=== PATIENT | female | born 1975 | race Hispanic/Latino ===

== ENCOUNTER 2020-03-31 06:38 | Inpatient (IN) | payer OTHER, SELFPAY ==
[2020-03-31] MEDS ORDERED: Ketorolac Tromethamine 30 MG/ML VIAL ONE (07:09)
[2020-03-31] MEDS ORDERED: Ondansetron PF 4 MG/2 ML Vial ONE (07:09)
[2020-03-31 07:21] LABS: #Lymphocytes 1.4 thou/uL (1.20-3.40); #Monocytes 1.1 thou/uL (0.11-0.59); #Neutrophils 10.6 thou/uL (1.40-6.50); %Basophils 0.1 % (0.0-1.0); %Eosinophils 0.4 % (0.0-10.0); %Lymphocytes 10.7 % (21.0-51.0); %Neutrophils 80.8 % (42.0-75.0); Hemoglobin 13.3 g/dL (12.0-16.0); Mean Corpuscular HGB CONC 31.8 g/dL (32.0-36.0); Mean Corpuscular Hemoglobin 27.2 pg (27.0-31.0); Mean Corpuscular Volume 85.4 fL (78.0-98.0); Mean Platelet Volume 7.1 fL (7.4-10.4); Platelet Count 333 thou/uL (130-400); RBC Distribution Width 12.4 % (11.5-14.5); White Blood Cell (WBC) Count 13.1 thou/uL (4.8-10.8)
[2020-03-31 07:26] LABS: BHCG - Serum Negative (NEGATIVE); Pregs Control Background? CLEAR/WHITE (CLR/WHITE); Pregs Control Bar Appear? YES (CONTROL BAR)
[2020-03-31 07:28] LABS: Bilirubin Negative (Negative); Blood, Urine 2+ (Negative); Clarity Turbid (Clear); Glucose, Urine (Dipstick) Normal (Negative); Ketone, Urine 150 mg/dL (Negative); Leukocyte 250 Leu/uL (Negative); Nitrite Negative (Negative); Protein, Urine (Dipstick) Negative (Neg-Trace); Specific Gravity, Urine 1.014 (1.002-1.036); Urobilinogen Normal mg/dL (Less than 2)
[2020-03-31 07:36] LABS: Bacteria/HPF 1+ HPF (None Seen)
[2020-03-31 07:43] LABS: ALT (SGPT) 27 U/L (8-55); AST (SGOT) 19 U/L (5-34); Albumin 4.2 g/dL (3.5-5.0); Alkaline Phosphatase 61 U/L (40-110); Anion Gap 12 mmol/L (10-20); BUN (Urea Nitrogen) 6 mg/dL (7.0-18.7); Bilirubin, Total 0.5 mg/dL (0.2-1.2); Calc. Creatinine Clearance 0 mL/min (70-130); Calcium 9.4 mg/dL (7.8-10.44); Carbon Dioxide 25 mmol/L (22-29); Chloride 102 mmol/L (98-107); Estimated GFR-MDRD Greater than 90; Globulin 3.7 g/dL (2.4-3.5); Glucose 110 mg/dL (70-105); Lipase Less than 4 U/L (8-78); Potassium 3.8 mmol/L (3.5-5.1); Protein, Total 7.9 g/dL (6.0-8.3); Sodium 135 mmol/L (136-145)
--- NOTE | 2020-03-31 07:48 | ULT ---
Exam: Right upper quadrant ultrasound: HISTORY: Right upper quadrant abdominal pain for one week which is now worse COMPARISON: None FINDINGS: Liver: Increased in echogenicity suggesting diffuse fatty infiltration. Hypoechoic area seen adjacent to the gallbladder likely attributable to fatty sparing. Gallbladder: There is a echogenic focus seen in the neck of the gallbladder with posterior shadowing most compatible with a gallbladder calculus which measures approximately 2.4 cm. Additional very small amount of echogenic material is seen in the gallbladder lumen probably related to gallbladder s ludge. No gallbladder wall thickening or pericholecystic fluid is identified. Common bile duct: The common duct is normal in caliber measuring 0.4 cm in diameter. Pancreas: Mostly obscured and not well evaluated on this exam. Right kidney: Right kidney demonstrates a normal sonographic appearance. The right kidney measures 1 0.3 cm in length. IVC: The visualized IVC demonstrates a normal sonographic appearance. IMPRESSION: 1. Cholelithiasis with large gallbladder calculus seen in the neck of the gallbladder measuring 2.4 c m. Gallbladder is mildly distended. There is no gallbladder wall thickening or pericholecystic fluid identified. Suggestion of very small amount of gallbladder sludge. 2. Fatty infiltration of the liver.
[2020-03-31] MEDS ORDERED: Morphine 2 MG/ML VIAL SLOW IVP PRN (09:26)
[2020-03-31] MEDS ORDERED: hydrALAZINE 20 MG/ML VIAL SLOW IVP PRN (09:26)
[2020-03-31] MEDS ORDERED: Morphine 4 MG/ML VIAL SLOW IVP PRN (09:26)
[2020-03-31] MEDS ORDERED: Ondansetron PF 4 MG/2 ML Vial IVP PRN (09:26)
[2020-03-31] MEDS ORDERED: Ondansetron ODT 4 MG TAB PO PRN (09:26)
--- NOTE | 2020-03-31 10:46 | HP ---
HISTORY OF PRESENT ILLNESS: Judy Heredia is a 44-year-old female, [place]z-speaking only, reports with more than one month history of episodic epigastric right upper quadrant pain, back radiation, becoming more severe, presented to the emergency room. Ultrasound reveals large gallstones, normal bile duct caliber. Liver function tests are normal. White count 13, hemoglobin 13. Renal function normal. The patient has not had any COVID symptoms. She is COVID negative clinically. COVID swab obtained, pending. The patient has a positive Salas sign on exam. She has acute cholecystitis, cholelithiasis, and needs laparoscopic cholecystectomy that cannot be managed as an outpatient as a result of anesthesia requirements, that she be COVID negative, she will have to be hospitalized until that test becomes available later today or tomorrow to perform a laparoscopic cholecystectomy, pending that determination. ALLERGIES: NONE. SOCIAL HISTORY: Tobacco, none. Alcohol, rarely. MEDICATIONS: None routinely. PAST SURGICAL HISTORY: C-sections. PAST MEDICAL HISTORY: Noncontributory. Clinically COVID negative. PHYSICAL EXAMINATION: VITAL SIGNS: Blood pressure 120/74, heart rate 74, respiratory rate 16. HEAD, EARS, EYES, NOSE, AND THROAT: Unremarkable. Sclerae are nonicteric. SKIN: Nonjaundiced. LUNGS: Clear to auscultation. CARDIAC: Regular rate and rhythm without murmur or gallop. ABDOMEN: Soft. Tenderness in the right upper quadrant, guarding, rebound, positive Salas sign. EXTREMITIES: Unremarkable. scar per above history. LABORATORY DATA: As above. ASSESSMENT AND PLAN: Acute on chronic cholecystitis, cholelithiasis. Recommend laparoscopic video cholecystectomy. Risks and benefits explained. Questions answered. Job ID: [id number]
[2020-03-31] MEDS: Sodium Chloride 0.9% 1,000 ML IV SCH ×2 (11:49→18:03)
[2020-03-31 11:57] VITALS: BMI 27.6
[2020-03-31] MEDS: Ketorolac Tromethamine 30 MG/ML VIAL IVP SCH ×3 (13:16→23:57)
[2020-03-31] MEDS ORDERED: Enoxaparin Sodium 40 MG/0.4 ML SYRINGE SC SCH (21:00)
[2020-04-01] MEDS: Sodium Chloride 0.9% 1,000 ML IV SCH ×2 (04:57→05:14)
[2020-04-01] MEDS: Ketorolac Tromethamine 30 MG/ML VIAL IVP SCH ×3 (05:13→16:42)
[2020-04-01] MEDS ORDERED: Ondansetron PF 4 MG/2 ML Vial ONE (10:23)
[2020-04-01] MEDS ORDERED: Rocuronium Bromide 10 MG/ML (10ML VIAL) ONE (10:23)
[2020-04-01] MEDS ORDERED: PROPOFOL 200 MG/20 ML VIAL ONE (10:23)
[2020-04-01] MEDS ORDERED: Lidocaine 1% PF 5 ML VIAL ONE (10:23)
[2020-04-01] MEDS ORDERED: Dexamethasone 20 MG/5 ML VIAL ONE (10:23)
[2020-04-01] MEDS ORDERED: Glycopyrrolate 0.2 MG/ML 5 ML SYRINGE ONE (10:23)
[2020-04-01 12:11] LABS: SARS-CoV-2 MS2 Positive; SARS-CoV-2 N Gene Negative; SARS-CoV-2 S Gene Negative; SARS-CoV-2 by NAA Not Detected (NotDetected); SARS-CoV-2 orf1ab Negative
[2020-04-01] MEDS ORDERED: Bupivacaine PF 0.5% 30 ML VIAL ONE (13:25)
[2020-04-01] MEDS ORDERED: Lidocaine 1% w/Epinephrine 1:100K 20 ML VIAL ONE (13:25)
[2020-04-01] MEDS ORDERED: Ibuprofen 600 MG TAB PO PRN (13:56)
[2020-04-01] MEDS ORDERED: Acetaminophen 500 MG TAB PO PRN (13:56)
[2020-04-01] MEDS ORDERED: traMADol HCl 50 MG TAB PO PRN ×2 (13:56)
[2020-04-01] MEDS ORDERED: Midazolam HCl 2 mg/2 ml Vial ONE (14:05)
[2020-04-01] MEDS ORDERED: Fentanyl 100 MCG/2 ML VIAL ONE ×2 (14:05→14:37)
[2020-04-01 18:45] VITALS: BP 113/75; TEMP 98.4
--- NOTE | 2020-04-01 22:40 | OP ---
DATE OF PROCEDURE: 04/01/2020 PREOPERATIVE DIAGNOSES: Acute and chronic cholecystitis, cholelithiasis, and gallbladder outlet obstruction with large gallstone. PROCEDURE PERFORMED: Laparoscopic video cholecystectomy. ANESTHESIA: General, local 0.5% Marcaine with epinephrine 30 mL mixed with 1% Xylocaine with epinephrine 20 mL. DESCRIPTION OF PROCEDURE: The patient was taken to the operating room, where under general anesthesia, abdomen was prepared with ChloraPrep and draped in routine fashion. Local anesthetic mixture was infiltrated into the skin and subcutaneous tissue about each port site. Infraumbilical incision was made. Pneumoperitoneum to 15 mmHg was obtained with a Veress needle, replaced with a 5 port, video laparoscope inserted. Right subxiphoid incision was made and 11 port placed. Right subcostal incision was made at midclavicular entrance. A 5 port was placed. The gallbladder was acutely inflamed, thickened wall, large stone blocking in the gallbladder outlet. There was an acute inflammatory reaction. Fundus was grasped, reflected cephalad. Infundibulum grasped and reflected laterally. Cystic artery and duct dissected free. Critical view obtained. Cystic artery and duct doubly clipped proximally and divided. Gallbladder dissected free from liver bed, obtaining good hemostasis, prior to division of final peritoneal attachments good hemostasis obtained utilizing Benjamín. Gallbladder and numerous large stones were removed. Good hemostasis assured. Benjamín applied as stated. Pneumoperitoneum and irrigant evacuated. All instruments were removed. All skin incisions were approximated with interrupted subdermal 4-0 Monocryl after right subxiphoid fascia approximated with 0 Vicryl on UR needle. The patient tolerated the procedure well. Job ID: [id number]
--- NOTE | 2020-04-02 04:21 | DIS ---
DATE OF ADMISSION: 03/31/2020 DATE OF DISCHARGE: 04/01/2020 DISCHARGE DIAGNOSES: Acute cholecystitis, cholelithiasis. 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 She was hospitalized overnight, IV fluids, n.p.o., and given antibiotics. Taken to the operating room for findings that were that of acute cholecystitis with markedly thickened wall, difficult dissection. Postoperatively, the patient was discharged home with Tylenol, Motrin [id number] for pain, Ultram #21 refill, Zofran #10 one refill. Follow up in my office in 2 to 3 weeks. Diet and activity as tolerated. Job ID: [id number]
== END 2020-04-01 19:05 | disposition home or self-care (01) | DRG 419 ==
LOC: ERS 06:38 → T4-A 11:16
PROVIDERS: ADMIT Specialist; ATTEND Specialist
PROC: 0FT44ZZ Resection of Gallbladder, Percutaneous Endoscopic Approach (ICD-10-PCS; principal; 2020-04-01)
DX: K80.13 Calculus of gallbladder with acute and chronic cholecystitis with obstruction (principal); Z88.8 Allergy status to other drugs, medicaments and biological substances; Z11.59 Encounter for screening for other viral diseases
CPT/HCPCS: 76705; 80053; 81003; 81015; 83690; 84703; 85025; 87635; 88304; 93005; 96365; 96375; J1100; J1885; J1956; J2250; J2405; J2704; J3010; S0020; U0003